=== PATIENT | female | born 1980 | race Caucasian/White ===

== ENCOUNTER 2023-06-02 18:12 | Emergency (ER) | payer OTHER ==
[2023-06-02 18:21] VITALS: BP 133/78; PULSE 70; RESP 18; TEMP 98.1; BMI 23.0
[2023-06-02] MEDS ORDERED: ACETAMINOPHEN INJECTION 100 ML IVPB ONE (20:17)
[2023-06-02] MEDS: ACETAMINOPHEN 1000 MG/100 ML BAG IVPB ONE (20:22)
[2023-06-02 20:36] LABS: HEMATOCRIT 28.5 % (32.4-45.2); HEMOGLOBIN 9.7 GM/dL (10.7-15.3); MCH 28.3 pg (25.7-33.7); MEAN CELL VOLUME 83.4 fl (80-96); MEAN PLT VOLUME 7.3 fl (7.5-11.1); PLATELET COUNT 350 10^3/uL (134-434); RBC 3.42 M/mm3 (3.60-5.2); RDW 14.7 % (11.6-15.6); WHITE BLOOD COUNT 4.4 K/mm3 (4.0-10.0)
[2023-06-02 20:36] LABS: EPI CELLS 5 /uL (0-25.1); HYALINE CASTS 0 /uL (0-3.1); PH,URINE 7.5 (5.0-8.0); URINE APPEARANCE CLEAR; URINE BACTERIA 154 /uL (0-1359); URINE BILIRUBIN NEGATIVE (NEGATIVE); URINE COLOR YELLOW; URINE GLUCOSE (UA) NEGATIVE (NEGATIVE); URINE KETONE NEGATIVE (NEGATIVE); URINE LEUK ESTERASE NEGATIVE (NEGATIVE); URINE NITRITE NEGATIVE (NEGATIVE); URINE PROTEIN NEGATIVE (NEGATIVE); URINE RBC 8 /uL (0-23.9); URINE UROBILINOGEN 0.2 mg/dL (0.2-1.0); URINE WBC 5 /uL (0-25.8)
[2023-06-02 20:41] LABS: INR 1.09 (0.83-1.09); PROTHROMBIN TIME (PATIENT) 12.6 SEC (9.7-13.0)
[2023-06-02 20:44] LABS: ACTIVATED PTT 34.6 SECONDS (25.2-36.5)
[2023-06-02 21:02] LABS: POTASSIUM 4.3 mmol/L (3.5-5.1)
[2023-06-02 21:04] LABS: ALBUMIN 3.3 g/dl (3.4-5.0); BLOOD UREA NITROGEN 8.9 mg/dL (7-18); CALCIUM 8.6 mg/dL (8.5-10.1); MAGNESIUM 2.1 mg/dL (1.8-2.4)
[2023-06-02 21:07] LABS: CREATININE 0.6 mg/dL (0.55-1.3)
[2023-06-02 21:09] LABS: BILIRUBIN,TOTAL 0.4 mg/dL (0.2-1); TOT PROT 6.6 g/dl (6.4-8.2)
[2023-06-02 21:12] LABS: N-TERMINAL BNP 347.6 pg/ml (5-125)
[2023-06-02 21:26] LABS: ANISOCYTOSIS 0; MACROCYTOSIS 0
== END 2023-06-02 22:41 | disposition home or self-care (01) ==
LOC: JER 18:12
PROC: 3E033NZ Introduction of Analgesics, Hypnotics, Sedatives into Peripheral Vein, Percutaneous Approach (ICD-10-PCS; principal; 2023-06-02)
DX: R06.02 Shortness of breath (principal); R50.9 Fever, unspecified; R51.9 Headache, unspecified
CPT/HCPCS: 36415; 70450-TC; 71046-TC-FY; 80053; 81003; 83735; 83880; 84100; 84484; 84703; 85025; 85610; 85651; 85730; 87086; 93005; 93010; 99285-25; J0131